=== PATIENT | female | born 1975 ===

== ENCOUNTER 2017-11-24 20:08 | Emergency (ER) | payer OTHER ==
[2017-11-24 20:48] VITALS: BP 155/99
[2017-11-24] MEDS ORDERED: Meclizine TAB* 12.5 MG PO ONE (21:10)
--- NOTE | 2017-11-24 21:11 | UC ---
UC General HPI - HPI Summary HPI Summary: had one episode of vertigo with nausea is concerned because she is flying to [place] . - History of Current Complaint Chief Complaint: UCDizziness Stated Complaint: VERTIGO Time Seen by Provider: 11/24/17 20:58 Hx Obtained From: Patient Onset/Duration: Sudden Onset, Resolved Pain Intensity: 0 - Allergy/Home Medications Allergies/Adverse Reactions: Allergies Allergy/AdvReac Type Severity Reaction Status Date / Time No Known Allergies Allergy Verified 11/24/17 20:37 Home Medications: Home Medications Atenolol TAB* [Tenormin TAB* 50 MG] 50 mg PO DAILY 11/24/17 [History Confirmed 11/24/17] Atorvastatin* [Lipitor 10 MG*] 10 mg PO DAILY 11/24/17 [History Confirmed ] Canagliflozin (NF) [Invokana (NF)] 300 mg PO DAILY 11/24/17 [History Confirmed 11/24/17] Lisinopril TAB* [Prinivil TAB 10 MG*] 40 mg PO DAILY 11/24/17 [History Confirmed 11/24/17] Multivitamin [Multivitamins] 1 cap PO DAILY 11/24/17 [History Confirmed 11/24/17 ] Venlafaxine EXT RELEASE CAP* [Effexor Xr CAP*] 225 mg PO DAILY 11/24/17 [ History Confirmed 11/24/17] glipiZIDE TAB* [Glucotrol TAB*] 5 mg PO TID 11/24/17 [History Confirmed 11/24/17 ] metFORMIN* [Glucophage 1000 MG TAB *] 1,000 mg PO BID 11/24/17 [History Confirmed 11/24/17] PMH/Surg Hx/FS Hx/Imm Hx Previously Healthy: No Endocrine History: Diabetes, Dyslipidemia Cardiovascular History: Hypertension Neurological History: Other Other Neurological History: past episodes with vertigo Psychological History: Depression - Surgical History Surgical History: Yes Surgery Procedure, Year, and Place: hysterectomy. ovidio - Family History Known Family History: Positive: None - Social History Occupation: Employed Full-time Lives: With Family Alcohol Use: Occasionally Substance Use Type: None Smoking Status (MU): Never Smoked Tobacco Review of Systems Constitutional: Negative Skin: Negative Eyes: Negative ENT: Negative Respiratory: Negative Cardiovascular: Negative Gastrointestinal: Negative Genitourinary: Negative Motor: Negative Neurovascular: Negative Musculoskeletal: Negative Neurological: Other - vertigo Psychological: Negative Is Patient Immunocompromised?: No All Other Systems Reviewed And Are Negative: Yes Physical Exam Triage Information Reviewed: Yes Appearance: Well-Appearing, No Pain Distress, Well-Nourished Vital Signs: Initial Vital Signs Temp 97.9 F 11/24/17 20:41 Pulse 98 11/24/17 20:41 Resp 20 11/24/17 20:41 BP 155/99 11/24/17 20:41 Pulse Ox 99 11/24/17 20:41 Vital Signs Reviewed: Yes Eye Exam: Normal Eyes: Positive: Conjunctiva Clear, Other: - perrla, eomi. no nystagmus ENT Exam: Normal ENT: Positive: Normal ENT inspection, Hearing grossly normal, Pharynx normal, Uvula midline. Negative: Dental tenderness, Sinus tenderness Dental Exam: Normal Neck exam: Normal Neck: Positive: Supple, Nontender Respiratory Exam: Normal Respiratory: Positive: Chest non-tender, Lungs clear, Normal breath sounds, No respiratory distress, No accessory muscle use Cardiovascular Exam: Normal Cardiovascular: Positive: RRR, No Murmur, Pulses Normal, Brisk Capillary Refill Musculoskeletal Exam: Normal Musculoskeletal: Positive: Strength Intact, ROM Intact, No Edema Neurological Exam: Normal Neurological: Positive: Alert, Muscle Tone Normal Psychological Exam: Normal Skin Exam: Normal Course/Dx - Course Course Of Treatment: add meclizine and follow with pcp to ed should symptoms worsen or fail to resolve with meclizine - Differential Dx - Multi-Symptom Provider Diagnoses: Vertigo, hypertension in poor control Discharge - Sign-Out/Discharge Documenting (check all that apply): Discharge/Admit/Transfer - Discharge Plan Condition: Stable Disposition: HOME Prescriptions: Meclizine TAB* [Antivert 12.5 TAB*] 25 mg PO TID PRN #20 tab PRN Reason: vertigo Patient Education Materials: Vertigo (ED), Hypertension (ED) Referrals: Shorty Paredes [Primary Care Provider] - 2 Weeks - Billing Disposition and Condition Condition: STABLE Disposition: HOME
== END 2017-11-24 21:42 | disposition home or self-care (01) ==
LOC: UCCORT 20:08
DX: R42 Dizziness and giddiness (principal); R11.0 Nausea; E11.9 Type 2 diabetes mellitus without complications; Z79.84 Long term (current) use of oral hypoglycemic drugs; E78.5 Hyperlipidemia, unspecified; I10 Essential (primary) hypertension; F32.9 Major depressive disorder, single episode, unspecified
CPT/HCPCS: 99212; A9270-GY; G0463